=== PATIENT | female | born 1990 | race Caucasian/White ===

== ENCOUNTER 2019-06-19 11:46 | Inpatient (IN) | payer OTHER ==
[~2019-06-19] VITALS: Ht 165.1 cm; Wt 94.3 kg
[2019-06-19] MEDS ORDERED: PREN-380 PO (12:15)
[2019-06-19] MEDS ORDERED: CARBOPROST 250 MCG/ML AMP IM PRN (12:15)
[2019-06-19] MEDS ORDERED: OXYTOCIN 20 UNITS in LACTATED RINGERS 1,000 ML IV SCH (12:15)
[2019-06-19] MEDS ORDERED: PROMETHAZINE 25 MG/ML VIAL IVP PRN (12:15)
[2019-06-19] MEDS ORDERED: METHYLERGONOVINE 0.2 MG/ML AMP IM PRN ×2 (12:15→18:55)
[2019-06-19] MEDS ORDERED: NALBUPHINE 10 MG/ML AMP IVP PRN (12:15)
[2019-06-19] MEDS ORDERED: LACTATED RINGERS 1,000 ML IV SCH (12:15)
[2019-06-19 12:39] VITALS: BP 118/58
[2019-06-19] MEDS ORDERED: OXYTOCIN 20 UNITS/LR PREMIX 1,000 ML IV ONE (12:53)
[2019-06-19 12:56] LABS: BILIRUBIN,URINE NEGATIVE (NEGATIVE); BLOOD, URINE NEGATIVE (NEGATIVE); COLOR,URINE YELLOW (YELLOW); LEUKOCYTE ESTERASE ,URINE 2+ (NEGATIVE); NITRITE, URINE NEGATIVE (NEGATIVE); UGLUCOSE NEGATIVE (NEGATIVE)
[2019-06-19 12:58] LABS: BASOPHILS % (AUTO) 0.4 % (0.0-2.0); EOSINOPHILS % (AUTO) 0.3 % (0.0-4.0); HEMATOCRIT 30.9 % (36-48); HEMOGLOBIN 10.4 g/dL (12.0-16.0); LYMPHOCYTES # (AUTO) 0.8 K/uL (2.5-16.5); LYMPHOCYTES % (AUTO) 12.6 % (20.5-51.1); MEAN CORPUSCULAR HEMOGLOBIN 28 pg (27-31); MEAN CORPUSCULAR HGB CONC 34 g/dL (33-37); MEAN CORPUSCULAR VOLUME 83.9 fL (80-94); MONOCYTES # (AUTO) 0.6 K/uL (0.8-1.0); MONOCYTES % (AUTO) 8.4 % (1.7-9.3); NEUTROPHILS # (AUTO) 5.1 K/uL (1.8-7.7); NEUTROPHILS % (AUTO) 78.3 % (42.2-75.2); PLATELET COUNT (AUTO) 287 K/uL (140-450); RED BLOOD CELL COUNT(AUTO) 3.69 MIL/uL (4.20-5.40); WHITE BLOOD COUNT (AUTO) 6.5 K/uL (4.8-10.8)
[2019-06-19 13:13] LABS: APPEARANCE,URINE SLIGHTLY HAZY (CLEAR); RBC,URINE 0-5 /HPF (0-5)
[2019-06-19] MEDS ORDERED: AMPICILLIN 2,000 MG in NACL 0.9% MINI-BAG PLUS 100 ML IV SCH (14:00)
[2019-06-19] MEDS ORDERED: AMPICILLIN 1,000 MG in NACL 0.9% MINI-BAG PLUS 50 ML IV SCH (16:00)
[2019-06-19] MEDS ORDERED: LIDOCAINE 1% 500 MG/50 ML VIAL ONE (18:26)
[2019-06-19] MEDS ORDERED: LIDOCAINE MPF 1% 10 MG/ML VIAL INJ SCH (18:35)
[2019-06-19] MEDS ORDERED: BENZOCAINE/MENTHOL 20%-0.5% 60 GM CAN TP PRN (18:55)
[2019-06-19] MEDS ORDERED: oxyCODONE/APAP 5/325 MG 1 TAB TAB PO PRN (18:55)
[2019-06-19] MEDS ORDERED: TEMAZEPAM 15 MG CAP PO PRN (18:55)
[2019-06-19] MEDS ORDERED: IBUPROFEN 800 MG TAB PO PRN (18:55)
[2019-06-19] MEDS ORDERED: OXYTOCIN 10 UNITS/ML VIAL IM PRN (18:55)
[2019-06-19] MEDS ORDERED: HYDROcodone/APAP 5/325 MG 1 TAB TAB PO PRN (18:55)
[2019-06-19] MEDS ORDERED: DOCUSATE SOD/SENNA 50/8.6 MG 1 TAB PO SCH (21:00)
[2019-06-20 08:05] LABS: HEMATOCRIT 28.8 % (36-48); HEMOGLOBIN 9.4 g/dL (12.0-16.0)
--- NOTE | 2019-06-20 08:36 | NUR ---
PATIENT HAS BEEN SCREENED AND CATEGORIZED LOW NUTRITION RISK. PATIENT WILL BE SEEN WITHIN 7 DAYS OF ADMISSION. 06/25/[address]
[2019-06-20] MEDS ORDERED: EPIDURAL KEYS MC ONE (08:50)
== END 2019-06-21 10:35 | disposition home or self-care (01) | DRG 560 ==
LOC: MLD 11:46 → OBSVTOIN 12:15 → MFCC 21:55
PROVIDERS: ADMIT Obstetrics & Gynecology; ATTEND Obstetrics & Gynecology
PROC: 10E0XZZ Delivery of Products of Conception, External Approach (ICD-10-PCS; principal; 2019-06-19)
PROC: 10907ZC Drainage of Amniotic Fluid, Therapeutic from Products of Conception, Via Natural or Artificial Opening (ICD-10-PCS; 2019-06-19)
DX: O36.8130 Decreased fetal movements, third trimester, not applicable or unspecified (principal); Z37.0 Single live birth; Z3A.39 39 weeks gestation of pregnancy
CPT/HCPCS: 36415; 59409; 81001; 85018; 85025; 86592; 86886; 86900; 86901; 87086; C1758; G0378; J2001; J2300; J2550; J2590; J7120